=== PATIENT | female | born 1995 | race Caucasian/White ===

== ENCOUNTER 2018-12-22 08:58 | Emergency (ER) | payer OTHER ==
[2018-12-22] MEDS ORDERED: MORPHINE 4 MG/ML SYR ONE (09:17)
[2018-12-22] MEDS ORDERED: ONDANSETRON 4 MG/2 ML VIAL ONE (09:17)
[2018-12-22 09:36] LABS: Absolute Lymphocytes (CBC) 1.2 K/uL (0.7-4.9); Basophils % 0.3 % (0-1.3); Hematocrit 37.2 % (36.0-45.0); Lymphocytes % 10.7 % (15.3-44.8); MPV 8.5 fL (7.6-11.3); RBC Red Blood Cell Count 4.14 M/uL (3.86-4.86)
[2018-12-22 09:52] LABS: Albumin 4.1 g/dL (3.4-5.0); Bilirubin Direct 0.1 mg/dL (0-0.2); Bilirubin Total 0.4 mg/dL (0.2-1.0); Potassium 3.8 mmol/L (3.5-5.1); Protein, Total 7.4 g/dL (6.4-8.2)
[2018-12-22 09:54] LABS: Urine Bacteria <20 /HPF (<20); Urine RBC <5 /HPF (NONE SEEN)
[2018-12-22 09:55] LABS: Urine Blood TRACE (NEG); Urine Glucose NEGATIVE (NEG); Urine Protein NEGATIVE (NEG); Urine pH 8.5 (5.0-7.0)
[2018-12-22 09:55] LABS: Urine Culture Reflex Order NOT NEEDED
[2018-12-22] MEDS ORDERED: KETOROLAC 30 MG/ML INJ ONE (10:00)
[2018-12-22] MEDS ORDERED: TAMSULOSIN 0.4 MG SR CAP ONE (10:00)
[2018-12-22] MEDS ORDERED: NA CHLORIDE 0.9% 500 ML ONE (10:00)
[2018-12-22] MEDS ORDERED: MAGNESIUM SULFATE 1 gm IVPB 1 GM/100 ML BAG IV ONE (10:00)
--- NOTE | 2018-12-22 10:26 | ER ---
Nurse's Notes [facility] Name: Donya Peterson Age: 23 yrs Sex: Female : 1995 Arrival Date: 12/22/2018 Time: 09:01 Bed 19 Private MD: out of town, doctor Diagnosis: Distal right ureteral stone, uncomplicated Presentation: 12/22 09:12 Presenting complaint: Patient states: right sided back pain that started this morning em 0430, reports nausea, vomiting and breaking out in a sweat, denies burning with urination. Transition of care: patient was not received from another setting of care. Onset of symptoms was December 22, 2018. Risk Assessment: Do you want to hurt yourself or someone else? Patient reports no desire to harm self or others. Initial Sepsis Screen: Does the patient meet any 2 criteria? No. Patient's initial sepsis screen is negative. Does the patient have a suspected source of infection? No. Patient's initial sepsis screen is negative. Care prior to arrival: None. 09:12 Method Of Arrival: Ambulatory em 09:16 Acuity: SORIN 3 iw PSYCHIATRIST: 09:13 LMP 11/22/2018 em Historical: - Allergies: 09:13 No Known Allergies; em - Home Meds: 09:13 None [Active]; em - PMHx: 09:13 None; em - PSHx: 09:13 None; em - Immunization history:: Adult Immunizations up to date. - Social history:: Smoking status: Patient/guardian denies using tobacco. - Ebola Screening: : Patient negative for fever greater than or equal to 101.5 degrees Fahrenheit, and additional compatible Ebola Virus Disease symptoms Patient denies exposure to infectious person Patient denies travel to an Ebola-affected area in the 21 days before illness onset No symptoms or risks identified at this time. - Family history:: not pertinent. - Hospitalizations: : No recent hospitalization is reported. Screenin:14 Abuse screen: Denies threats or abuse. Nutritional screening: No deficits noted. em Tuberculosis screening: No symptoms or risk factors identified. Fall Risk None identified. Assessment: 09:13 General: Appears in no apparent distress. uncomfortable, Behavior is calm, cooperative. em Pain: Complains of pain in right low back Pain does not radiate. Pain currently is 8 out of 10 on a pain scale. Pain began 4 hours ago. Neuro: Level of Consciousness is awake, alert, obeys commands, Oriented to person, place, time, situation. Cardiovascular: Capillary refill < 3 seconds Patient's skin is warm and dry. Respiratory: Airway is patent Respiratory effort is even, unlabored, Respiratory pattern is regular, symmetrical. GI: Abdomen is flat, Abd is soft and non tender X 4 quads. Reports nausea, vomiting, Patient currently denies diarrhea. : Urine is clear, Reports Denies burning with urination. Derm: Skin is intact, is healthy with good turgor, Skin is pink, warm \T\ dry. Musculoskeletal: Capillary refill < 3 seconds, Range of motion: intact in all extremities. 09:48 Reassessment: Patient appears in no apparent distress at this time. Patient and/or em family updated on plan of care and expected duration. Pain level reassessed. Patient is alert, oriented x 3, equal unlabored respirations, skin warm/dry/pink. reports pain is 7/10, provider notified. 10:36 Reassessment: Patient appears in no apparent distress at this time. Patient and/or em family updated on plan of care and expected duration. Pain level reassessed. Patient is alert, oriented x 3, equal unlabored respirations, skin warm/dry/pink. denies nausea at this time Patient denies pain at this time. Patient states feeling better. Patient states symptoms have improved. 10:41 Reassessment: will be discharged after completion of magnesium. em 11:15 Reassessment: Patient appears in no apparent distress at this time. Patient and/or em family updated on plan of care and expected duration. Pain level reassessed. Patient is alert, oriented x 3, equal unlabored respirations, skin warm/dry/pink. Patient denies pain at this time. Vital Signs: 09:13 BP 117 / 56; Pulse 89; Resp 20; Temp 98.6(O); Pulse Ox 100% on R/A; Weight 63.5 kg; em Height 5 ft. 10 in. (177.80 cm); Pain 8/10; 10:37 BP 109 / 67; Pulse 72; Resp 18; Pulse Ox 99% on R/A; Pain 0/10; em 09:13 Body Mass Index 20.09 (63.50 kg, 177.80 cm) em ED Course: 09:01 Patient arrived in ED. mr 09:02 out of town, doctor is Private Physician. mr 09:03 Go Zaidi LVN is Primary Nurse. em 09:05 Jaciel Cole MD is Attending Physician. rn 09:13 Arm band placed on. em 09:14 Patient has correct armband on for positive identification. Placed in gown. Bed in low em position. Call light in reach. Adult w/ patient. Pulse ox on. NIBP on. 09:16 Triage completed. iw 09:25 Initial lab(s) drawn, by me, sent to lab. Inserted saline lock: 22 gauge in right em antecubital area, using aseptic technique. Blood collected. 09:40 CT Stone Protocol In Process Unspecified. EDMS 10:25 Kermit Alfaro MD is Referral Physician. rn 10:39 No provider procedures requiring assistance completed. em 11:15 IV discontinued, intact, bleeding controlled, No redness/swelling at site. Pressure em dressing applied. Administered Medications: 09:28 Drug: Zofran 4 mg Route: IVP; Site: right antecubital; iw 09:50 Follow up: Response: No adverse reaction; Nausea is decreased em 09:30 Drug: morphine 4 mg Route: IVP; Site: right antecubital; iw 09:50 Follow up: Response: No adverse reaction; Pain is unchanged, physician notified em 10:10 Drug: TORadol 30 mg Route: IVP; Site: right antecubital; iw 10:38 Follow up: Response: No adverse reaction; Pain is decreased em 10:12 Drug: Flomax 0.4 mg Route: PO; em 10:38 Follow up: Response: No adverse reaction em 10:13 Drug: Magnesium Sulfate 1 grams Route: IVPB; Infused Over: 1 hrs; Site: right em antecubital; 11:16 Follow up: Response: No adverse reaction; IV Status: Completed infusion; IV Intake: em 100ml 10:13 Drug: NS 0.9% 500 ml Route: IV; Rate: bolus; Site: right antecubital; em 11:16 Follow up: IV Status: Completed infusion; IV Intake: 500ml em Intake: 11:16 IV: 100ml; Total: 100ml. em 11:16 IV: 500ml; Total: 600ml. em Outcome: :25 Discharge ordered by . rn 11:15 Discharged to home ambulatory, with family. em 11:15 Condition: good 11:15 Discharge instructions given to patient, family, Instructed on discharge instructions, follow up and referral plans. medication usage, Demonstrated understanding of instructions, follow-up care, medications, Prescriptions given X 4. 11:18 Patient left the ED. em Signatures: Dispatcher [employer] ED InocencioKristan Dejuan, Go, POWERTRAIN CALIBRATION ENGINEER POWERTRAIN CALIBRATION ENGINEER em Shreya Srinivasan, NICK RN iw Jaciel Cole MD MD rn
--- NOTE | 2018-12-22 10:27 | EDPHYS ---
Physician Documentation [facility] Name: Donya Peterson Age: 23 yrs Sex: Female : 1995 Arrival Date: 12/22/2018 Time: 09:01 Bed 19 Private MD: out of town, doctor ED Physician Jaciel Cole HPI: 12/22 10:05 This 23 yrs old Female presents to ER via Ambulatory with complaints of Back rn Pain. 10:05 The patient presents with pain that is acute, with no known mechanism of injury. The rn symptoms are located in the low back. Onset: The symptoms/episode began/occurred this morning, at 04:30. The pain does not radiate. Associated signs and symptoms: Pertinent positives: nausea. Modifying factors: The patient symptoms are alleviated by nothing, the patient symptoms are aggravated by nothing. Severity of symptoms: At their worst the symptoms were moderate, in the emergency department the symptoms are unchanged. The patient has not experienced similar symptoms in the past. Reports right lower back/flank pain that began this morning around 0430, no radiation, + nausea, no fever/vomiting/diarrhea. No hx of kidney stones.. 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 - Social history:: Smoking status: Patient/guardian denies using tobacco. - Ebola Screening: : Patient negative for fever greater than or equal to 101.5 degrees Fahrenheit, and additional compatible Ebola Virus Disease symptoms Patient denies exposure to infectious person Patient denies travel to an Ebola-affected area in the 21 days before illness onset No symptoms or risks identified at this time. - Family history:: not pertinent. - Hospitalizations: : No recent hospitalization is reported. ROS: 10:05 Constitutional: Negative for fever, chills, and weight loss, Eyes: Negative for injury, rn pain, redness, and discharge, Neck: Negative for injury, pain, and swelling, Cardiovascular: Negative for chest pain, palpitations, and edema, Respiratory: Negative for shortness of breath, cough, wheezing, and pleuritic chest pain, Abdomen/GI: Negative for abdominal pain, diarrhea, and constipation, Back: + right lower back pain MS/Extremity: Negative for injury and deformity, Skin: Negative for injury, rash, and discoloration, Neuro: Negative for headache, weakness, numbness, tingling, and seizure. Exam: 10:05 Constitutional: This is a well developed, well nourished patient who is awake, alert, rn and in no acute distress. Abdomen/GI: soft, non-tender Back: No spinal tenderness. No costovertebral tenderness. Full range of motion. MS/ Extremity: Pulses equal, no cyanosis. Neurovascular intact. Full, normal range of motion. Equal circumference. Neuro: Awake and alert, GCS 15. Motor strength 5/5 in all extremities. Sensory grossly intact. Normal gait. Vital Signs: 09:13 BP 117 / 56; Pulse 89; Resp 20; Temp 98.6(O); Pulse Ox 100% on R/A; Weight 63.5 kg; em Height 5 ft. 10 in. (177.80 cm); Pain 8/10; 10:37 BP 109 / 67; Pulse 72; Resp 18; Pulse Ox 99% on R/A; Pain 0/10; em 09:13 Body Mass Index 20.09 (63.50 kg, 177.80 cm) em MDM: 09:05 Patient medically screened. rn 10:23 Differential diagnosis: Ureterolithiasis. Differential diagnosis: . Data rn reviewed: vital signs, nurses notes. Counseling: I had a detailed discussion with the patient and/or guardian regarding: the historical points, exam findings, and any diagnostic results supporting the discharge/admit diagnosis, lab results, radiology results, the need for outpatient follow up, to return to the emergency department if symptoms worsen or persist or if there are any questions or concerns that arise at home. Response to treatment: the patient's symptoms have markedly improved after treatment, and as a result, I will discharge patient. Special discussion: I discussed with the patient/guardian in detail that at this point there is no indication for admission to the hospital. It is understood, however, that if the symptoms persist or worsen the patient needs to return immediately for re-evaluation. 12/22 09:14 Order name: Urine Microscopic Only; Complete Time: 09:56 rn 12/22 09:16 Order name: Basic Metabolic Panel; Complete Time: 09:56 rn 12/22 09:16 Order name: CBC with Diff; Complete Time: 09:56 rn 12/22 09:16 Order name: Hepatic Function; Complete Time: 09:56 rn 12/22 09:16 Order name: Lipase; Complete Time: 09:56 rn 12/22 09:19 Order name: Urine Dipstick--Ancillary (enter results); Complete Time: 09:56 bd 12/22 09:16 Order name: CT Stone Protocol rn 12/22 09:19 Order name: Urine --Ancillary (enter results); Complete Time: 09:56 bd 12/22 09:14 Order name: Urine Dipstick-Ancillary (obtain specimen); Complete Time: 09:19 rn 12/22 09:14 Order name: Urine Test (obtain specimen); Complete Time: 09:19 rn 12/22 09:16 Order name: IV Saline Lock; Complete Time: 09:28 rn 12/22 09:16 Order name: Labs collected and sent; Complete Time: 09:28 rn Administered Medications: 09:28 Drug: Zofran 4 mg Route: IVP; Site: right antecubital; iw 09:50 Follow up: Response: No adverse reaction; Nausea is decreased em 09:30 Drug: morphine 4 mg Route: IVP; Site: right antecubital; iw 09:50 Follow up: Response: No adverse reaction; Pain is unchanged, physician notified em 10:10 Drug: TORadol 30 mg Route: IVP; Site: right antecubital; iw 10:38 Follow up: Response: No adverse reaction; Pain is decreased em 10:12 Drug: Flomax 0.4 mg Route: PO; em 10:38 Follow up: Response: No adverse reaction em 10:13 Drug: Magnesium Sulfate 1 grams Route: IVPB; Infused Over: 1 hrs; Site: right em antecubital; 11:16 Follow up: Response: No adverse reaction; IV Status: Completed infusion; IV Intake: em 100ml 10:13 Drug: NS 0.9% 500 ml Route: IV; Rate: bolus; Site: right antecubital; em 11:16 Follow up: IV Status: Completed infusion; IV Intake: 500ml em Disposition: 12/22/18 10:25 Discharged to Home. Impression: Distal right ureteral stone, uncomplicated. - Condition is Stable. - Discharge Instructions: Kidney Stones, Dietary Guidelines to Help Prevent Kidney Stones. - Prescriptions for Zofran ODT 4 mg Oral tablet,disintegrating - place 1 tablet by TRANSLINGUAL route every 8 hours As needed; 20 tablet. Ibuprofen 800 mg Oral Tablet - take 1 tablet by ORAL route every 12 hours As needed take with food; 20 tablet. Tylenol- Codeine #3 300-30 mg Oral Tablet - take 2 tablet by ORAL route every 6 hours As needed; 30 tablet. Flomax 0.4 mg Oral Capsule, Sust. Release 24 hr - take 1 capsule by ORAL route once daily 1/2 hour following the same meal each day. Stop taking when pain free for 24 hours.; 5 capsule. - Medication Reconciliation Form, Thank You Letter, Antibiotic Education, Prescription Opioid Use form. - Follow up: Kermit Alfaro; When: As needed; Reason: Recheck today's complaints, Re-evaluation by your physician. - Problem is new. - Symptoms have improved. Signatures: Dispatcher [employer] Go Wilcox, SEAN DIRECTOR [employer] DATABASE em Shreya Srinivasan RN RN iw Jaciel Cole MD MD rn liaison: (The following items were deleted from the chart) 11:18 10:25 12/22/2018 10:25 Discharged to Home. Impression: Distal right ureteral stone, em uncomplicated. Condition is Stable. Discharge Instructions: Kidney Stones, Dietary Guidelines to Help Prevent Kidney Stones. Prescriptions for Zofran ODT 4 mg Oral tablet,disintegrating - place 1 tablet by TRANSLINGUAL route every 8 hours As needed; 20 tablet, Ibuprofen 800 mg Oral Tablet - take 1 tablet by ORAL route every 12 hours As needed take with food; 20 tablet, Tylenol-Codeine #3 300-30 mg Oral Tablet - take 2 tablet by ORAL route every 6 hours As needed; 30 tablet, Flomax 0.4 mg Oral Capsule, Sust. Release 24 hr - take 1 capsule by ORAL route once daily 1/2 hour following the same meal each day. Stop taking when pain free for 24 hours.; 5 capsule. and Forms are Medication Reconciliation Form, Thank You Letter, Antibiotic Education, Prescription Opioid Use. Follow up: Kermit Alfaro; When: As needed; Reason: Recheck today's complaints, Re-evaluation by your physician. Problem is new. Symptoms have improved. rn
--- NOTE | 2018-12-22 14:10 | RAD REPORT ---
EXAM DESCRIPTION: CT - Stone Protocol - 12/22/2018 12:42 pm CLINICAL HISTORY: Abdominal pain, right back and flank pain COMPARISON: None. TECHNIQUE: Axial 5 mm thick images were obtained without oral or IV contrast. The [id number] span s the entirety of the system including uppermost abdomen and lung bases. All CT scans are performed using dose optimization technique as appropriate and may include automated exposure control or mA/KV adjustment according to patient size. FINDINGS: Mild right-sided hydronephrosis secondary to a 4 mm right UVJ calculus. There is bilateral nonobstructing 2-5 mm calculi. No left-sided hydronephrosis. No suspicious renal masses. Isodense ma sses and pyelonephritis are not excluded on a stone protocol CT scan. No urinary bladder suspicious f inding. No significant adrenal finding. Imaged portions of the liver, spleen and pancreas show no suspicious findings on non-contrast imaging . No gallbladder or biliary tree abnormality identified. No suspicious bowel findings. Nonspecific mesenteric lymph nodes are present. No hernia, mass or bulky lymphadenopathy noted. No free air, free fluid or inflammatory stranding. Ut erus and ovaries show no suspicious findings. Left ovarian cyst is evident not felt to be clinically significant in a patient with right-sided symptoms. No significant bony abnormality. Technical malfunction is precluded reporting at the time of the study. Images were also limited in av ailability. Preliminary report was telephoned when images became available. Final dictation was delay ed. IMPRESSION: Mild right-sided hydronephrosis secondary to a 4 mm UVJ calculus. Bilateral 2-5 mm nonobstructing calyx calculi. Isodense masses and pyelonephritis are not excluded on stone protocol technique.
== END 2018-12-22 11:18 | disposition home or self-care (01) ==
LOC: ER 08:58
DX: N20.1 Calculus of ureter (principal)
CPT/HCPCS: 96365; 85025; 80048; 36415; 81025; 80076; 83690; 76377; 74176; 96375; 99284; J3475; J2405; 81003; 81015